=== PATIENT | female | born 1960 | race Hispanic/Latino ===

== ENCOUNTER 2024-04-11 08:45 | Inpatient (IN) | payer SELFPAY ==
[~2024-04-11] VITALS: Ht 160 cm; Wt 95.3 kg
[2024-04-11 09:20] LABS: BASOPHILS # (AUTO) 0.11 K/uL (0.00-0.20); BASOPHILS % (AUTO) 0.9 % (0.0-5.0); EOSINOPHILS # (AUTO) 0.22 K/uL (0.00-0.70); EOSINOPHILS % (AUTO) 1.8 % (0.0-8.0); HEMATOCRIT 35.3 % (36-48); IMMATURE GRANULOCYTE ABSOLUTE 0.24 K/uL (0-1); LYMPHOCYTES # (AUTO) 3.2 K/uL (1.0-4.8); LYMPHOCYTES % (AUTO) 25.7 % (21.0-51.0); MEAN CORPUSCULAR HEMOGLOBIN 23.5 pg (27.0-33.0); MEAN CORPUSCULAR HGB CONC 30.3 g/dL (32.0-36.0); MEAN CORPUSCULAR VOLUME 77.6 fL (79-99); MONOCYTES # (AUTO) 0.7 K/uL (0.1-1.0); NEUTROPHILS # (AUTO) 7.8 K/uL (1.8-7.7); NEUTROPHILS % (AUTO) 63.6 % (40.0-77.0); PLATELET COUNT (AUTO) 521 K/uL (130-400); RED BLOOD CELL COUNT(AUTO) 4.55 MIL/uL (4.00-5.50); RED CELL DISTRIBUTION WIDTH 16.2 % (11.0-15.5); WHITE BLOOD COUNT (AUTO) 12.3 K/uL (4.8-10.8)
[2024-04-11 09:33] LABS: ALBUMIN 3.1 g/dL (3.5-5.0); BILIRUBIN,TOTAL 0.7 mg/dL (0.2-1.0); CREATININE 1.3 mg/dL (0.5-1.0); TOTAL PROTEIN, SERUM 7.5 g/dL (6.0-8.3)
[2024-04-11 09:43] LABS: POTASSIUM 2.6 mmol/L (3.5-5.1)
[2024-04-11] MEDS: 0.9%NACL 1000ML 1,000 ML IV ONE ×2 (10:00)
[2024-04-11] MEDS: ONDANSETRON 4MG INJ IVP ONE (10:00)
[2024-04-11] MEDS: POTASSIUM BICARB/CIT AC 25 MEQ TABLET.EFF PO ONE (10:00)
[2024-04-11 10:08] LABS: SARS-CoV-2, RNA, NAAT NEGATIVE SARS CoV-2 (NEGATIVE)
[2024-04-11 10:11] LABS: MAGNESIUM 2.5 mg/dL (1.80-2.40)
[2024-04-11 10:16] LABS: INFLUENZA TYPE A Negative For Type A (NEGATIVE); INFLUENZA TYPE B Negative For Type B (NEGATIVE)
[2024-04-11 12:44] LABS: BILIRUBIN,URINE NEGATIVE (NEGATIVE); COLOR,URINE YELLOW (YELLOW); GLUCOSE, URINE (UA) NEGATIVE (NEGATIVE); KETONES,URINE NEGATIVE (NEGATIVE); LEUKOCYTE ESTERASE ,URINE 75 Leu/uL (NEGATIVE); NITRATE,URINE NEGATIVE (NEGATIVE); OCCULT BLOOD,URINE NEGATIVE (NEGATIVE); PH,URINE 5.5 (5.0-8.0); PROTEIN,URINE 20 mg/dL (NEGATIVE); UROBILINOGEN,URINE 0.2 mg/dL (0.2-1.0)
[2024-04-11 12:45] LABS: ADD UA MICROSCOPIC YES; APPEARANCE,URINE HAZY (CLEAR)
[2024-04-11 12:48] LABS: BACTERIA,URINE FEW /HPF (None Seen); MUCUS,URINE RARE LPF (None Seen); SQUAMOUS EPITHELIAL CELL,UR MOD /HPF (0-2)
[2024-04-11] MEDS ORDERED: morPHINE 2 MG SYG IV PRN (14:00)
[2024-04-11] MEDS ORDERED: MAGNESIUM 2GM PREMIX 50ML 50 ML IV PRN (14:00)
[2024-04-11] MEDS ORDERED: acetaMINOPHEN 325 MG TAB PO PRN ×2 (14:00)
[2024-04-11] MEDS ORDERED: ONDANSETRON 4MG INJ IV PRN (14:00)
[2024-04-11] MEDS: ZOSYN 3.375GM +NS 50ML IVPB SCH (14:10)
[2024-04-11] MEDS: 0.9%NACL 1000ML 1,000 ML IV SCH (14:10)
[2024-04-11] MEDS: KCL 20 MEQ ERTAB PO PRN (14:14)
[2024-04-11] MEDS: POTASSIUM CHLORIDE 10% ELIXIR 20 MEQ/15 ML UDCUP PO PRN (16:11)
[2024-04-11 16:40] VITALS: BP 126/81; PULSE 106; RESP 18; TEMP 98.7; O2SAT 98
[2024-04-11] MEDS: POTASSIUM CHLORIDE 10MEQ/100ML 100 ML IV PRN (18:08)
[2024-04-11 19:25] VITALS: O2SAT 97
[2024-04-11 20:00] VITALS: BP 106/63; PULSE 96; RESP 17; TEMP 98
[2024-04-11] MEDS ORDERED: 0.9%NACL 50ML IV SCH (21:00)
[2024-04-11] MEDS: FAMOTIDINE 20MG VIAL IV SCH (21:00)
[2024-04-11 22:53] LABS: HEMOGLOBIN A1C 6.3 % (4.0-6.0)
[2024-04-12] VITALS (8 sets, daily range): BP systolic 116–145; BP diastolic 63–89; PULSE 72–126; RESP 17–19; TEMP 97.7–98.1; O2SAT 97
[2024-04-12] MEDS: acetaMINOPHEN WITH coDEINE 1 TAB TAB PO PRN ×2 (04:48→14:21)
[2024-04-12 05:33] LABS: BASOPHILS # (AUTO) 0.09 K/uL (0.00-0.20); BASOPHILS % (AUTO) 0.9 % (0.0-5.0); EOSINOPHILS # (AUTO) 0.22 K/uL (0.00-0.70); EOSINOPHILS % (AUTO) 2.1 % (0.0-8.0); HEMATOCRIT 32.2 % (36-48); IMMATURE GRANULOCYTE ABSOLUTE 0.22 K/uL (0-1); LYMPHOCYTES # (AUTO) 3.5 K/uL (1.0-4.8); LYMPHOCYTES % (AUTO) 32.7 % (21.0-51.0); MEAN CORPUSCULAR HEMOGLOBIN 23.7 pg (27.0-33.0); MEAN CORPUSCULAR HGB CONC 29.2 g/dL (32.0-36.0); MEAN CORPUSCULAR VOLUME 81.3 fL (79-99); MONOCYTES # (AUTO) 0.9 K/uL (0.1-1.0); MONOCYTES % (AUTO) 8.2 % (3.0-13.0); NEUTROPHILS # (AUTO) 5.7 K/uL (1.8-7.7); PLATELET COUNT (AUTO) 455 K/uL (130-400); RED BLOOD CELL COUNT(AUTO) 3.96 MIL/uL (4.00-5.50); RED CELL DISTRIBUTION WIDTH 16.2 % (11.0-15.5); WHITE BLOOD COUNT (AUTO) 10.6 K/uL (4.8-10.8)
[2024-04-12] MEDS: INSULIN humuLIN R 100 UNIT/ML 3ML SQ SCH (05:36)
[2024-04-12 05:56] LABS: ALBUMIN 2.8 g/dL (3.5-5.0); BILIRUBIN,TOTAL 0.6 mg/dL (0.2-1.0); CREATININE 0.9 mg/dL (0.5-1.0); POTASSIUM 3.6 mmol/L (3.5-5.1); TOTAL PROTEIN, SERUM 6.6 g/dL (6.0-8.3)
[2024-04-12 06:51] LABS: ERYTHROCYTE SEDIMENTATION RATE 76 MM/HR (0-30)
[2024-04-12] MEDS: HEParin 5,000 UNIT VIAL SQ SCH (09:22)
[2024-04-12] MEDS ORDERED: FURO-152 PO (10:09)
[2024-04-12] MEDS ORDERED: OMEP20CA12 PO (10:09)
[2024-04-12] MEDS ORDERED: LISI5TAB21 PO (10:09)
[2024-04-12] MEDS ORDERED: SPIR50TA5 PO (10:09)
[2024-04-12] MEDS: POTASSIUM CHLORIDE 10MEQ SR TAB PO PRN (11:06)
== END 2024-04-12 19:17 | disposition home or self-care (01) | DRG 872 ==
LOC: EDH 08:45 → EDHIP 13:39 → 3DH 16:40
PROVIDERS: ADMIT Hospitalist; ATTEND Hospitalist
DX: A41.9 Sepsis, unspecified organism (principal); N39.0 Urinary tract infection, site not specified; E87.20 Acidosis, unspecified; N17.9 Acute kidney failure, unspecified; E86.9 Volume depletion, unspecified; E87.6 Hypokalemia; E83.42 Hypomagnesemia; E11.9 Type 2 diabetes mellitus without complications; D64.9 Anemia, unspecified; E78.00 Pure hypercholesterolemia, unspecified; G47.00 Insomnia, unspecified; I10 Essential (primary) hypertension; K59.00 Constipation, unspecified; Z20.822 Contact with and (suspected) exposure to COVID-19
CPT/HCPCS: 36415; 70450; 71045; 80053; 81001; 82550; 82948; 83036; 83605; 83690; 83735; 83880; 84132; 84145; 84484; 85025; 85651; 87040; 87086; 87186; 87635; 87804; 93005; 96361; 96374; G0378; J1644; J2405; J2543; J3480; J3490; J7030